=== PATIENT | female | born 1975 | race Caucasian/White ===

== ENCOUNTER 2025-02-01 20:31 | Emergency (ER) | payer OTHER, SELFPAY ==
[2025-02-01 20:37] VITALS: BP 128/87
[2025-02-01 20:58] LABS: Hematocrit 42.5 % (37.0-47.0); Hemoglobin 14.0 g/dL (12.0-16.0); Mean Corp Hgb Conc. 32.9 g/dL (33.0-37.0); Mean Corpuscular Volume 83.3 fL (81.0-99.0); Nucleated Red Blood Cells % 0 %; Platelet Count 316 10^3/uL (130-400); Red Cell Dist. Width 12.6 % (11.5-14.5)
[2025-02-01 21:10] LABS: HCG, Serum Qualitative Screen Negative
[2025-02-01 21:14] LABS: ALT (SGPT) 13 U/L (0-35); AST (SGOT) 19 U/L (14-36); Albumin 4.3 g/dl (3.5-5.0); Alkaline Phosphatase 60 U/L (38-126); Blood Urea Nitrogen 14 mg/dl (7-17); Calcium 9.1 mg/dl (8.4-10.2); Carbon Dioxide 30 mmol/L (22-30); Chloride 100 mmol/L (98-107); Glucose 144 mg/dl (70-99); Potassium 3.9 mmol/L (3.5-5.1); Sodium 136 mmol/L (135-145); Total Protein 6.9 g/dl (6.3-8.2); eGFR > 60.00
[2025-02-01 21:20] LABS: Troponin I < 0.012 ng/ml
--- NOTE | 2025-02-01 21:58 | ED.GENMED ---
History of Present Illness
General
Chief Complaint: Chest Pain
Time Seen by Provider: 02/01/25 21:57
History of Present Illness
History of Present Illness:
FOCUSED PAST MEDICAL HISTORY
- Has been on metoprolol for the past 20 years related to vasovagal syncope
REVIEW OF OLD RECORDS
- The patient was seen here in 2010 with chest pain
Note:
CHIEF COMPLAINT(S)
Chest pain and cough.
HISTORY OF PRESENT ILLNESS
The patient is a 49-year-old female who presented with chest pain that started around 6:50 PM and intensified by 7:10 PM. The pain was described as non-sharp, radiating to the jaw and back, and constant, lasting for approximately 25 to 30 minutes.
The pain was not associated with heart fluttering. It resolved before presentation but briefly recurred after reaching urgent care. She also reported a cough that had persisted over the past weekend, characterized by a cramping feeling, which kept
her up during the night.
The patients previous Electrocardiogram (EKG) at urgent care showed irregularity, but upon evaluation, it was deemed to be sinus arrhythmia, which is a normal variation especially in younger individuals. Cardiac blood work done initially was normal,
though there were plans to repeat it due to the timeline of symptom onset. The patient also reported feeling very tired and drained recently, with a blood sugar level noted to be slightly elevated at 144 mg/dL, whereas usually it is low.
The patient noted no significant physical exertion symptoms like shortness of breath or chest pain exacerbated by activity. There was a brief mention of being examined for potential crackling on the right side upon auscultation, which might prompt
an X-ray, though no persistent abnormal lung sounds were confirmed.
PHYSICAL EXAM
- General: Well appearing in no distress
- HEENT: Moist oral mucosa
- Cardiovascular: No murmurs, normal heart rate, regular rhythm, No chest wall tenderness
- Pulmonary: No respiratory distress, breath sounds are clear and equal
- Abdomen: Soft with no peritoneal signs, no tenderness
- Neurologic: Excellent strength all extremities, no coordination deficits
- Psychiatric: Appropriate mental status, normal insight and judgement
- Extremities: Nontender, no edema, moves all extremities equally
- Skin: No rash, no lesions
PAST MEDICAL AND SURGICAL HISTORY
The patient has a known history of vasovagal syncope, for which she sees a land reclamation specialist.
ADDITIONAL HISTORY OBTAINED FROM SOURCES OTHER THAN PATIENT
None available.
EXTERNAL RECORDS REVIEWED
EKG from urgent care showing irregularity identified as sinus arrhythmia.
PLAN
1. Repeat cardiac blood test to rule out myocardial infarction.
2. Chest X-ray to assess for any pulmonary issues, considering the cough and transient crackling sound noted upon examination.
3. Referral to see her land reclamation specialist, Dr. Zimmer, for further outpatient cardiac evaluation.
DIFFERENTIAL DIAGNOSIS
The Differential Diagnosis includes, in no particular order and is not limited to:
1. Myocardial infarction
2. Angina
3. Gastroesophageal reflux disease (GERD)
4. Costochondritis
5. Anxiety-related chest pain
6. Pulmonary embolism
7. Pneumonia
8. Panic attack
9. Atypical chest pain due to musculoskeletal strain
10. Hypertensive crisis
RADIOLOGY
- Chest x-ray obtained and is unremarkable
EKG
- Sinus 71, no acute ST abnormality, no significant change in comparison to 04/28/2010
LABS
- CBC normal, chemistries unremarkable glucose is 144, troponin less than 0.012 x 2, hCG negative
UPDATE
-SUMMARY OF ENCOUNTER
The patient, a 49-year-old female, presented with chest pain and a persistent cough. The chest pain, which radiated to the jaw and back, resolved before her arrival at the emergency department but briefly recurred. Initial assessment included an EKG
and cardiac blood work. The EKG was deemed unremarkable. Troponin levels were assessed twice, both of which were normal, ruling out myocardial infarction. A chest x-ray was clear, mitigating concerns of pulmonary issues. The patient reported no
exertional symptoms. Given her known history of vasovagal syncope and follow-up with a land reclamation specialist, outpatient management was deemed appropriate.
DISPOSITION
Discharge
ASSESSMENT
Chest pain, likely non-cardiac, given unremarkable EKG, normal troponins, and resolved symptoms. Possible causes include musculoskeletal strain or anxiety, in the context of her history of vasovagal syncope.
REASSESSMENT
Patient appeared very comfortable upon reassessment at the time of discharge.
PLAN
The patient is to follow up with her land reclamation specialist, Dr. Zimmer, for further outpatient evaluation given her history of vasovagal syncope.
INDEPENDENT REVIEW OF LABS AND INTERPRETATION OF TESTS
My independent review of EKG is unremarkable.
My independent review of troponin levels is normal on two separate occasions.
My independent review of the chest x-ray is unremarkable.
MEDICAL DECISION MAKING
-Complexity of Data Reviewed: Chronic conditions affecting care [Vasovagal syncope history]
Differential Diagnosis: Includes myocardial infarction, angina, gastroesophageal reflux disease (GERD), costochondritis, anxiety-related chest pain, pulmonary embolism, pneumonia, panic attack, atypical chest pain due to musculoskeletal strain,
hypertensive crisis.
-Data:
Category 1:
External record reviewed: EKG from urgent care showing sinus arrhythmia.
Category 3:
Discussion of management with other physician: None explicitly mentioned, but plans for her to follow with Dr. Buenrostro are noted, implying cardiology input.
-Risk:
Prescription medication was not prescribed, and the patient was advised to continue management with her land reclamation specialist.
Consideration of Admission/Observation: Escalation of care including admission/observation was considered given the complexity and risk of the patients presenting complaint, but ultimately I feel the patient is safe for outpatient management with
close follow-up. Reasoning: Work-up reassuring, does not reveal any acute life/organ-threatening processes, patients symptoms well controlled upon reevaluation, reexamination is reassuring, vitals are stable, patient agreeable with discharge,
reliable for follow-up.
DIAGNOSIS
1. Chest pain
2. Cough (ICD-10: R05)
Past History
Past History
ED Past Medical History: None
ED Past Surgical History: Other (Cyst removal, left lower extremity laser vein stripping)
Social History
Tobacco: Smoker
Alcohol: None
Drug: None
Personal: Single
Living: with family
Employment: Employed
Family History
Family History: Negative Early CAD, CAD or Sudden
Phy Exam
Physical Exam
Physical Exam:
See HPI
Scores
Heart Score for Chest Pain Patients
STEMI patient?: Not applicable
Course
Orders/Labs/Results
Orders:
Orders
02/01/25 20:32
EKG [Electrocardiogram (*1)] Urgent
Reason for Study: Chest Pain
EKG- Treatment ONCE
02/01/25 20:40
IV Insert/Care/Rem.- Treatment PRN
O2 Therapy [RESP] Urgent
Titrate/Wean O2 to maintain O2 sat greater than (%): 90
Special Instructions: Maintain sats >/=90%
Pulse Ox/spot Check [RESP] Urgent
Quantity: 1
Special Instructions: ON ROOM AIR
02/01/25 20:41
Test Result ONCE
02/01/25 20:46
Complete Blood Count/With Diff Urgent
Comprehensive Metabolic Panel Urgent
HCG, Serum Qualitative Screen Urgent
Comment: Notify provider if positive test present
Troponin I Urgent
02/01/25 22:16
CR Chest - 2 Views Urgent
Comment:
Reason For Exam: pain
02/01/25 22:54
Troponin I Urgent
Abnormal Lab Results
02/01/25
20:46
MCHC 32.9 L g/dL
(33.0-37.0)
Glucose 144 H mg/dl
(70-99)
02/01/25 20:46
02/01/25 20:46
Vital Signs
Initial and Last Documented VS:
Initial Vital Signs
Temp Pulse Resp BP Pulse Ox
37.0 C 72 19 128/87 100
02/01/25 20:37 02/01/25 20:37 02/01/25 20:37 02/01/25 20:37 02/01/25 20:37
Last Documented Vital Signs
Temp Pulse Resp BP Pulse Ox
37.0 C 75 21 128/87 98
02/01/25 20:37 02/01/25 22:30 02/01/25 22:30 02/01/25 20:37 02/01/25 22:30
*Pulse Oximetry
SaO2: 100
Oxygen Mode of Delivery: Room air
Patient hypoxic: no
*Critical Care Note
Total Time (30-74mins, 75-104mins- exclusive of procedures): Not Applicable
ED Attending Note
-
Portions of this chart may have been created with voice recognition software.� Occasional wrong word or��sound alike� substitutions may have occurred due to the inherent limitations of voice recognition software.
Discharge Plan
Departure
Patient Disposition: Home (Routine Discharge)
Date of Disposition: 02/01/25
Time of Disposition: 23:47
Patient with high blood pressure during this ER visit?: Yes
Discharge Problem:
Chest pain
Instructions: Chest Pain DCA Follow Up, BLOOD PRESSURE
Prescriptions:
No Action
ibuprofen [Advil] 200 MG tablet
400 mg PO QID
metoprolol tartrate 25 MG tablet
25 mg PO BID
Referrals:
Tracie Scanlon DO [Family Provider, Family Practice]
Tigre Zimmer MD [Active, Cardiology]
Activity Restrictions/Additional Instructions:
EKG is normal and 2 cardiac blood test were normal tonight. Follow-up with Dr. Zimmer. Return if worse or other concerns.
Interventions
Interventions:
*Risk Screen - Suicide Last Done: 02/01/25 20:37
*General Assessment Last Done: 02/01/25 20:37
*Neglect/Abuse Screening Last Done: 02/01/25 20:37
*ED- Fall Risk Assessment Last Done: 02/01/25 23:49
*ED COVID-19 Vaccine History Last Done: 02/01/25 23:49
*ED Influenza Vaccine History Last Done: 02/01/25 23:49
*Nursing Disposition Last Done: 02/02/25 00:18
ED- Cardiac Assessment Last Done: 02/01/25 23:50
Discharge Date and Time
Discharge Date/Time: 02/02/25 00:19
Print Language: [place]
[2025-02-01 23:24] LABS: Troponin I < 0.012 ng/ml
== END 2025-02-02 00:19 | disposition home or self-care (01) ==
LOC: EMR 20:31
PROVIDERS: Student in an Organized Health Care Education/Training Program; EMERGENCY PHYSICIAN Emergency Medicine; FAMILY PHYSICIAN Family Medicine
DX: R07.9 Chest pain, unspecified (principal); F17.200 Nicotine dependence, unspecified, uncomplicated
CPT/HCPCS: 99284; 71046; 80053; 84484; 84703; 85025; 93005